=== PATIENT | male | born 1990 | race Two or more races ===

== ENCOUNTER 2024-09-14 15:11 | Emergency (ER) | payer OTHER ==
[~2024-09-14] VITALS: Ht 170.2 cm; Wt 83.2 kg
[2024-09-14 15:18] VITALS: TEMP 98.4
[2024-09-14] MEDS ORDERED: LIDO-57 TP (16:59)
[2024-09-14] MEDS ORDERED: ACET-3385 PO (16:59)
[2024-09-14] MEDS: LIDOCAINE 5% TRANSDERMAL PATCH TD ONE (17:15)
[2024-09-14] MEDS: ACETAMINOPHEN 500 MG TABLET PO ONE (17:15)
[2024-09-14 17:20] VITALS: BP 130/74; PULSE 79; RESP 20; O2SAT 98
== END 2024-09-14 17:32 | disposition home or self-care (01) ==
LOC: EMS 15:11
DX: S42.001A Fracture of unspecified part of right clavicle, initial encounter for closed fracture (principal); S20.211A Contusion of right front wall of thorax, initial encounter; V29.99XA Rider (driver) (passenger) of other motorcycle injured in unspecified traffic accident, initial encounter; Y93.55 Activity, bike riding; Y92.488 Other paved roadways as the place of occurrence of the external cause; Y99.8 Other external cause status
CPT/HCPCS: 99284; 71046; 71101; G0238